=== PATIENT | female | born 1945 | race Caucasian/White ===

== ENCOUNTER 2020-07-16 23:12 | Inpatient (IN) | payer MEDICARE ==
[~2020-07-16] VITALS: Ht 165.1 cm; Wt 63.6 kg
[2020-07-16] MEDS ORDERED: ondansetron/PF 4mg/2ml inj IV ONE (23:50)
[2020-07-17 00:28] LABS: HEMOGLOBIN 12.5 g/dl (12.0-16.0); MEAN CORPUSCULAR HEMOGLOBIN 30.2 PG (27.0-31.0); MEAN PLATELET VOLUME 6.8 FL (7.4-10.4)
[2020-07-17 00:28] LABS: CLARITY,URINE CLEAR (Clear); COLOR,URINE YELLOW (Yellow); GLUCOSE, URINE NEGATIVE (Neg); KETONES,URINE NEGATIVE (Neg); LEUKOCYTE ESTERASE ,URINE MODERATE (Neg); NITRITES, URINE NEGATIVE (Neg); OCCULT BLOOD,URINE NEGATIVE (Neg); PROTEIN,URINE NEGATIVE (Neg); UROBILINOGEN,URINE 0.2 E.U/dL (0.2-1.0)
[2020-07-17 00:29] LABS: BASOPHILS % (AUTO) 0.6 % (0-1); EOSINOPHILS # (AUTO) 0.1 X10'3 (0-0.9); EOSINOPHILS % (AUTO) 1.1 % (0-6); HEMATOCRIT 36.1 % (35.0-45.0); LYMPHOCYTES # (AUTO) 1.1 X10'3 (1.1-4.8); LYMPHOCYTES % (AUTO) 15.5 % (21-51); MEAN CORPUSCULAR HGB CONC 34.5 g/dL (33.0-36.5); MEAN CORPUSCULAR VOLUME 87.6 FL (78-98); MONOCYTES # (AUTO) 0.5 X10'3 (0-0.9); MONOCYTES % (AUTO) 7.6 % (2-12); NEUTROPHILS # (AUTO) 5.2 X10'3 (1.8-7.7); NEUTROPHILS % (AUTO) 75.2 % (42-75); PLATELET COUNT 412 X10'3 (140-440); RED BLOOD COUNT 4.12 X10'6 (4.20-5.60); RED CELL DISTRIBUTION WIDTH 14.3 % (11.5-14.5); WHITE BLOOD COUNT 6.9 X10'3 (4.5-11.0)
[2020-07-17 00:32] LABS: UA COLLECTION TYPE CLN CATCH MIDSTREAM
[2020-07-17 00:34] LABS: HYALINE CASTS 0-3 /LPF (NEGATIVE); SQUAMOUS EPITHELIAL CELL,UR MODERATE /LPF (FEW)
[2020-07-17 00:35] LABS: RBC,URINE NONE SEEN /HPF (0-2)
[2020-07-17 00:36] LABS: BACTERIA,URINE 1+ /HPF (Neg); MUCUS STRANDS MODERATE /LPF (Neg); TRANSITIONAL EPI CELLS,URINE FEW /HPF
[2020-07-17 00:41] LABS: ALANINE AMINOTRANSFERASE 17 U/L (12-78); ALBUMIN/GLOBULIN RATIO 1.1 (1.1-1.5); ALKALINE PHOSPHATASE 134 IU/L (46-116); ANION GAP 14 (8-16); ASPARTATE AMINO TRANSFERASE 21 U/L (10-37); BILIRUBIN,TOTAL 0.7 MG/DL (0.1-1.0); BLOOD UREA NITROGEN 6 MG/DL (7-18); BUN/CREATININE RATIO 6.4 (6.6-38.0); CALCIUM 9.4 MG/DL (8.5-10.1); CHLORIDE 87 MMOL/L (99-107); CREATININE 0.94 MG/DL (0.40-0.90); GLUCOSE 126 MG/DL (70-104); POTASSIUM 3.2 MMOL/L (3.5-5.1); SODIUM 124 MMOL/L (135-145); TOTAL CARBON DIOXIDE 22.7 MMOL/L (24-32); TOTAL PROTEIN 7.7 G/DL (6.4-8.2); eGFR 58 ML/MIN
[2020-07-17] MEDS ORDERED: CefTRIAXone/D5W-Rocephin 1gm 50 ML IV ONE (02:00)
[2020-07-17] MEDS ORDERED: potassium Cl 20 mEq SR tablet PO STA (02:16)
[2020-07-17 02:36] LABS: TROPONIN I < 0.04 NG/ML (0.0-0.05)
[2020-07-17] MEDS ORDERED: LEVO75TA7 PO (03:01)
[2020-07-17] MEDS ORDERED: ATOR20TA66 PO (03:01)
[2020-07-17] MEDS ORDERED: LEVO50TA8 PO (03:01)
[2020-07-17] MEDS ORDERED: HYDR12.55 PO (03:01)
[2020-07-17] MEDS ORDERED: OMEP-50 PO (03:01)
[2020-07-17] MEDS ORDERED: ZOLP10TA PO (03:01)
[2020-07-17] MEDS ORDERED: LOSA50TA64 PO (03:01)
[2020-07-17] MEDS ORDERED: [UNRECOGNIZED DRUG - CODE] PO (03:01)
[2020-07-17] MEDS ORDERED: mag hydrox/Alum hydrox/simeth 30ml oral suspension PO PRN (03:45)
[2020-07-17] MEDS ORDERED: acetaminophen 325mg tablet PO PRN (03:45)
[2020-07-17] MEDS ORDERED: ondansetron/PF 4mg/2ml inj IV PRN (03:45)
[2020-07-17] MEDS ORDERED: magnesium hydroxide 30ml (MOM) UD suspension PO PRN (03:45)
[2020-07-17] MEDS ORDERED: zolpidem 5mg tablet PO PRN (04:25)
--- NOTE | 2020-07-17 04:25 | NUR ---
PT ARRIVED FROM ER. AMBULATED TO BED FROM . PT HAS BEEN ORIENTED TO THE ROOM. RECEIVED REPORT FROM YONG HA PRIOR TO PT'S ARRIVAL.
[2020-07-17 04:55] VITALS: BP 167/90
[2020-07-17] MEDS: normal saline 1000ml 1,000 ML IV SCH ×2 (05:07→20:19)
[2020-07-17 06:00] VITALS: BP 167/90
--- NOTE | 2020-07-17 06:13 | NUR ---
Problems reprioritized. Patient report given, questions answered & plan of care reviewed with YONG ZELAYA.
--- NOTE | 2020-07-17 07:20 | NUR ---
PAGER ID: [phone] MESSAGE: [id number] Rossy Young Can I get a stronger antiemetic? Mark isn't working. Mi [phone]
[2020-07-17] MEDS: levoTHYROXINE 25mcg tablet PO SCH (08:53)
[2020-07-17] MEDS: pantoprazole 40mg Tablet.DR PO SCH (08:53)
[2020-07-17] MEDS: atorvastatin 20mg tablet PO SCH (08:53)
[2020-07-17] MEDS: losartan 50mg tablet PO SCH (08:54)
[2020-07-17] MEDS: heparin, porcine 5000 units/ml vial SQ SCH ×2 (08:55→20:19)
[2020-07-17] MEDS ORDERED: metoclopramide 5 mg/ml inj IV ONE (09:20)
[2020-07-17] MEDS ORDERED: metoclopramide 5 mg/ml inj IV PRN (09:20)
[2020-07-17] MEDS ORDERED: potassium CL 10mEq/100ml bag 100 ML IV PRN (09:35)
[2020-07-17] MEDS ORDERED: magnesium Cl slow-release 64mg tablet PO PRN (09:35)
[2020-07-17] MEDS ORDERED: potassium Cl 20 mEq SR tablet PO PRN (09:35)
[2020-07-17] MEDS ORDERED: magnesium 4gm in 100ml NS 100 ML IV PRN (09:35)
[2020-07-17 10:00] VITALS: BP 142/65
[2020-07-17 10:14] LABS: BASOPHILS % (AUTO) 0.5 % (0-1); EOSINOPHILS % (AUTO) 0.1 % (0-6); HEMATOCRIT 34.8 % (35.0-45.0); LYMPHOCYTES # (AUTO) 0.7 X10'3 (1.1-4.8); MEAN CORPUSCULAR HEMOGLOBIN 29.8 PG (27.0-31.0); MEAN CORPUSCULAR HGB CONC 34.5 g/dL (33.0-36.5); MEAN CORPUSCULAR VOLUME 86.2 FL (78-98); MEAN PLATELET VOLUME 6.9 FL (7.4-10.4); MONOCYTES # (AUTO) 0.3 X10'3 (0-0.9); MONOCYTES % (AUTO) 4.2 % (2-12); NEUTROPHILS % (AUTO) 85.2 % (42-75); PLATELET COUNT 420 X10'3 (140-440); RED BLOOD COUNT 4.03 X10'6 (4.20-5.60); RED CELL DISTRIBUTION WIDTH 14.2 % (11.5-14.5)
[2020-07-17 10:36] LABS: ALBUMIN 3.6 G/DL (3.4-5.0); ANION GAP 12 (8-16); BLOOD UREA NITROGEN 5 MG/DL (7-18); CHLORIDE 90 MMOL/L (99-107); CREATININE 0.84 MG/DL (0.40-0.90); GLUCOSE 116 MG/DL (70-104); LIPASE 61 U/L (73-393); PHOSPHORUS 2.8 MG/DL (2.3-4.5); POTASSIUM 3.6 MMOL/L (3.5-5.1); SODIUM 125 MMOL/L (135-145); TOTAL CARBON DIOXIDE 23.2 MMOL/L (24-32); eGFR 66 ML/MIN
[2020-07-17] MEDS: CefTRIAXone/D5W-Rocephin 1gm 50 ML IV SCH (11:51)
--- NOTE | 2020-07-17 18:08 | NUR ---
Patient in room ORTHO 4009. I have received report from Danni and had the opportunity to ask questions and assume patient care.
[2020-07-17 18:10] VITALS: BP 139/54
--- NOTE | 2020-07-17 18:12 | NUR ---
Student documentation: I have reviewed and agree with all interventions, assessments performed and documented by JAMIE MONCADA. Student Medication Administration: For this medication-pass time frame, all medication were reviewed, dispensed, administered and documented per hospital policy by JAMIE BEACH.
--- NOTE | 2020-07-17 18:15 | NUR ---
Problems reprioritized. Patient report given, questions answered & plan of care reviewed with YONG BROWNE.
[2020-07-17] MEDS: K and/or MAG REPLACEMENT MC SCH (20:00)
[2020-07-17] MEDS: lactobacillus rhamnosus 10,000 MMU CELLS/CAPSULE PO SCH (20:19)
[2020-07-17 22:00] VITALS: BP 150/57
[2020-07-18] MEDS: normal saline 1000ml 1,000 ML IV SCH ×2 (05:37→19:04)
--- NOTE | 2020-07-18 06:01 | NUR ---
REPORT GIVEN TO RAUL BEACH
[2020-07-18 06:10] VITALS: BP 124/76
[2020-07-18 06:31] LABS: EOSINOPHILS # (AUTO) 0.1 X10'3 (0-0.9); EOSINOPHILS % (AUTO) 2.9 % (0-6); HEMATOCRIT 29.6 % (35.0-45.0); HEMOGLOBIN 10.1 g/dl (12.0-16.0); LYMPHOCYTES # (AUTO) 1.7 X10'3 (1.1-4.8); LYMPHOCYTES % (AUTO) 37.8 % (21-51); MEAN CORPUSCULAR HEMOGLOBIN 29.6 PG (27.0-31.0); MEAN CORPUSCULAR HGB CONC 34.1 g/dL (33.0-36.5); MEAN CORPUSCULAR VOLUME 86.7 FL (78-98); MEAN PLATELET VOLUME 7.2 FL (7.4-10.4); MONOCYTES # (AUTO) 0.6 X10'3 (0-0.9); MONOCYTES % (AUTO) 13.6 % (2-12); NEUTROPHILS # (AUTO) 2.1 X10'3 (1.8-7.7); NEUTROPHILS % (AUTO) 44.7 % (42-75); PLATELET COUNT 352 X10'3 (140-440); RED BLOOD COUNT 3.41 X10'6 (4.20-5.60); RED CELL DISTRIBUTION WIDTH 14.5 % (11.5-14.5); WHITE BLOOD COUNT 4.6 X10'3 (4.5-11.0)
[2020-07-18 06:40] LABS: ALANINE AMINOTRANSFERASE 14 U/L (12-78); ALBUMIN 2.9 G/DL (3.4-5.0); ALKALINE PHOSPHATASE 103 IU/L (46-116); ANION GAP 4 (8-16); ASPARTATE AMINO TRANSFERASE 15 U/L (10-37); BILIRUBIN,TOTAL 0.5 MG/DL (0.1-1.0); BLOOD UREA NITROGEN 4 MG/DL (7-18); BUN/CREATININE RATIO 4.7 (6.6-38.0); CALCIUM 8.6 MG/DL (8.5-10.1); CHLORIDE 102 MMOL/L (99-107); CREATININE 0.86 MG/DL (0.40-0.90); GLUCOSE 84 MG/DL (70-104); MAGNESIUM 1.6 MG/DL (1.5-2.4); PHOSPHORUS 2.8 MG/DL (2.3-4.5); POTASSIUM 3.3 MMOL/L (3.5-5.1); SODIUM 131 MMOL/L (135-145); TOTAL CARBON DIOXIDE 25.2 MMOL/L (24-32); TOTAL PROTEIN 5.7 G/DL (6.4-8.2); eGFR 64 ML/MIN
[2020-07-18] MEDS: K and/or MAG REPLACEMENT MC SCH ×2 (08:00→19:05)
[2020-07-18] MEDS: lactobacillus rhamnosus 10,000 MMU CELLS/CAPSULE PO SCH ×2 (09:03→19:04)
[2020-07-18] MEDS: atorvastatin 20mg tablet PO SCH (09:03)
[2020-07-18] MEDS: pantoprazole 40mg Tablet.DR PO SCH (09:04)
[2020-07-18] MEDS: potassium Cl 20 mEq SR tablet PO PRN ×3 (09:04→19:04)
[2020-07-18] MEDS: CefTRIAXone/D5W-Rocephin 1gm 50 ML IV SCH (09:06)
[2020-07-18] MEDS: losartan 50mg tablet PO SCH (09:06)
[2020-07-18] MEDS: heparin, porcine 5000 units/ml vial SQ SCH ×2 (09:07→19:04)
[2020-07-18 10:00] VITALS: BP 163/62
[2020-07-18 14:45] LABS: CLARITY,URINE CLEAR (Clear); COLOR,URINE YELLOW (Yellow); GLUCOSE, URINE NEGATIVE (Neg); KETONES,URINE NEGATIVE (Neg); LEUKOCYTE ESTERASE ,URINE SMALL (Neg); NITRITES, URINE NEGATIVE (Neg); OCCULT BLOOD,URINE NEGATIVE (Neg); PH,URINE 6.5 (4.8-8.0); PROTEIN,URINE NEGATIVE (Neg)
[2020-07-18 14:50] LABS: UA COLLECTION TYPE NON-SPECIFIED
[2020-07-18 15:09] LABS: BACTERIA,URINE FEW /HPF (Neg); MUCUS STRANDS FEW /LPF (Neg); SQUAMOUS EPITHELIAL CELL,UR FEW /LPF (FEW)
[2020-07-18 15:10] LABS: RBC,URINE 0-2 /HPF (0-2); TRANSITIONAL EPI CELLS,URINE FEW /HPF; WBC,URINE 0-4 /HPF (0-4)
[2020-07-18 18:00] VITALS: BP 118/51
--- NOTE | 2020-07-18 18:14 | NUR ---
Problems reprioritized. Patient report given, questions answered & plan of care reviewed with Juany BEACH.
[2020-07-18] MEDS: lactose-reduced food (Ensure High Protein) 237ml bottle PO SCH (18:21)
--- NOTE | 2020-07-18 18:25 | NUR ---
Patient in room ORTHO 4022. I have received report from Sasha BEACH and had the opportunity to ask questions and assume patient care.
--- NOTE | 2020-07-18 21:01 | NUR ---
Problems reprioritized. Patient report given, questions answered & plan of care reviewed with Ishaan BEACH.
--- NOTE | 2020-07-18 21:07 | NUR ---
Patient in room ORTHO 4022. I have received report from Juany BEACH and had the opportunity to ask questions and assume patient care.
[2020-07-18 22:00] VITALS: BP 178/70
[2020-07-19 06:00] VITALS: BP 142/64
[2020-07-19 06:05] LABS: BASOPHILS # (AUTO) 0.1 X10'3 (0-0.2); BASOPHILS % (AUTO) 0.9 % (0-1); EOSINOPHILS # (AUTO) 0.3 X10'3 (0-0.9); EOSINOPHILS % (AUTO) 4.6 % (0-6); HEMATOCRIT 29.9 % (35.0-45.0); HEMOGLOBIN 10.5 g/dl (12.0-16.0); LYMPHOCYTES # (AUTO) 2.3 X10'3 (1.1-4.8); MEAN CORPUSCULAR HEMOGLOBIN 30.9 PG (27.0-31.0); MEAN CORPUSCULAR HGB CONC 35.2 g/dL (33.0-36.5); MEAN CORPUSCULAR VOLUME 87.7 FL (78-98); MEAN PLATELET VOLUME 7.4 FL (7.4-10.4); MONOCYTES # (AUTO) 0.8 X10'3 (0-0.9); MONOCYTES % (AUTO) 12.7 % (2-12); NEUTROPHILS % (AUTO) 45.8 % (42-75); PLATELET COUNT 362 X10'3 (140-440); RED CELL DISTRIBUTION WIDTH 14.5 % (11.5-14.5); WHITE BLOOD COUNT 6.5 X10'3 (4.5-11.0)
[2020-07-19 06:13] LABS: ALANINE AMINOTRANSFERASE 16 U/L (12-78); ALBUMIN/GLOBULIN RATIO 1.1 (1.1-1.5); ALKALINE PHOSPHATASE 97 IU/L (46-116); ANION GAP 8 (8-16); ASPARTATE AMINO TRANSFERASE 18 U/L (10-37); BILIRUBIN,TOTAL 0.4 MG/DL (0.1-1.0); BLOOD UREA NITROGEN 9 MG/DL (7-18); BUN/CREATININE RATIO 10.2 (6.6-38.0); CALCIUM 9.1 MG/DL (8.5-10.1); CHLORIDE 102 MMOL/L (99-107); CREATININE 0.88 MG/DL (0.40-0.90); FERRITIN 115 NG/ML (8-252); GLUCOSE 81 MG/DL (70-104); MAGNESIUM 1.7 MG/DL (1.5-2.4); PHOSPHORUS 2.6 MG/DL (2.3-4.5); POTASSIUM 4.1 MMOL/L (3.5-5.1); SODIUM 135 MMOL/L (135-145); TOTAL CARBON DIOXIDE 24.6 MMOL/L (24-32); TOTAL PROTEIN 5.7 G/DL (6.4-8.2); eGFR 63 ML/MIN
[2020-07-19] MEDS: normal saline 1000ml 1,000 ML IV SCH (06:19)
--- NOTE | 2020-07-19 06:26 | NUR ---
Problems reprioritized. Patient report given, questions answered & plan of care reviewed with Min BEACH.
--- NOTE | 2020-07-19 06:31 | NUR ---
Patient in room ORTHO 4022. I have received report from Ishaan and had the opportunity to ask questions and assume patient care.
[2020-07-19 06:34] LABS: % IRON SATURATION 32 % (11-46); IRON 69 UG/DL (49-151); TOTAL IRON BINDING CAPACITY 217 UG/DL (259-388)
[2020-07-19] MEDS: K and/or MAG REPLACEMENT MC SCH (06:44)
[2020-07-19] MEDS ORDERED: levoTHYROXINE 75mcg tablet PO SCH (07:30)
[2020-07-19] MEDS: lactose-reduced food (Ensure High Protein) 237ml bottle PO SCH (07:49)
[2020-07-19] MEDS: atorvastatin 20mg tablet PO SCH (08:02)
[2020-07-19] MEDS: pantoprazole 40mg Tablet.DR PO SCH (08:02)
[2020-07-19] MEDS: levoTHYROXINE 25mcg tablet PO SCH (08:02)
[2020-07-19] MEDS: lactobacillus rhamnosus 10,000 MMU CELLS/CAPSULE PO SCH (08:03)
[2020-07-19] MEDS: losartan 50mg tablet PO SCH (08:03)
[2020-07-19] MEDS: CefTRIAXone/D5W-Rocephin 1gm 50 ML IV SCH (08:04)
[2020-07-19] MEDS: heparin, porcine 5000 units/ml vial SQ SCH (08:06)
[2020-07-19 10:00] VITALS: BP 123/63
[2020-07-19] MEDS ORDERED: CEFD300C3 PO (10:09)
[2020-07-19] MEDS ORDERED: AMLO5TAB16 PO (10:09)
[2020-07-19] MEDS ORDERED: LACT1CAP26 PO (10:09)
--- NOTE | 2020-07-19 12:30 | NUR ---
Safe DC. All personal items with patient. Left hospital with daughter in personal vehicle. Educated patient on new medications and follow-up with her primary care provider.
== END 2020-07-19 12:30 | disposition home or self-care (01) | DRG 690 ==
LOC: ER 23:12 → ED HOLD 07-17 03:45 → ORTHO 4S 07-17 04:22
PROVIDERS: ADMIT Internal Medicine; ATTEND Family Medicine
DX: N39.0 Urinary tract infection, site not specified (principal); E87.1 Hypo-osmolality and hyponatremia; E86.0 Dehydration; I10 Essential (primary) hypertension; D64.9 Anemia, unspecified; E03.9 Hypothyroidism, unspecified; E78.00 Pure hypercholesterolemia, unspecified; E78.5 Hyperlipidemia, unspecified; E86.1 Hypovolemia; J44.9 Chronic obstructive pulmonary disease, unspecified; K21.9 Gastro-esophageal reflux disease without esophagitis; Z87.442 Personal history of urinary calculi; Z90.710 Acquired absence of both cervix and uterus
CPT/HCPCS: 36415; 71045; 74018; 80048; 80053; 81001; 82728; 83540; 83550; 83690; 83735; 84100; 84443; 84484; 85025; 87077; 87081; 87088; 87186; 93005; 96365; 96375; 97161; 97530; 99285; G0378; J0696; J1644; J2405; J2765; J7030

== ENCOUNTER 2025-02-05 18:12 | Emergency (ER) | payer MEDICARE ==
[~2025-02-05] VITALS: Ht 165.1 cm; Wt 64.7 kg
[~2025-02-05 18:12] MED LIST: AMLO5TAB16 PO; ATOR20TA66 PO; LACT1CAP26 PO; LEVO50TA8 PO; LEVO75TA7 PO; LOSA50TA64 PO; OMEP20CA16 PO; ZOLP-679 PO; [UNRECOGNIZED DRUG - CODE] PO
[2025-02-05 18:18] VITALS: BP 189/90; PULSE 101; TEMP 97.6; O2SAT 96
--- NOTE | 2025-02-05 18:25 | Physician Documentation ---
History of Present Illness ~ Chief Complaint: Cold, cough & congestion Stated Complaint: "I HAVE A HEAD COLD THAT WENT INTO MY CHEST" Time Seen by MD: 18:39 OK to notify your PCP?: Yes Primary Medical Doctor: Gilliam Source: patient Mode of Arrival: POV Exam Limitations: no limitations HPI Sangita is a 79-year-old female who has been having a cough and congestion for the past 3 days. She has recently been moving it and around a lot of dust and thinks she may have gotten some dust particles into her lungs. She has no shortness of breath or chest pain. She has not taken any medications for her symptoms prior to arrival. Medication Reconciliation Allergies: Coded Allergies: Sulfa (Sulfonamide Antibiotics) (Verified Allergy, Unknown, 02/05/25) codeine (Verified Adverse Reaction, Unknown, 02/05/25) Scheduled Amlodipine Besylate (Amlodipine Besylate), 1 TAB PO DAILY Atorvastatin Calcium (Atorvastatin Calcium), 20 MG PO DAILY, (Reported) Lactobacillus Rhamnosus (Culturelle), 10,000 MMU PO Q12H Levothyroxine Sodium (Levothyroxine Sodium), 50 MCG PO MWF, (Reported) Levothyroxine Sodium (Levothyroxine Sodium), 75 MCG PO TUF, (Reported) Losartan Potassium (Losartan Potassium), 50 MG PO DAILY, (Reported) Omeprazole (Omeprazole), 20 MG PO DAILY, (Reported) Potassium Chloride (potassium chloride), 8 MEQ PO DAILY, (Reported) Zolpidem Tartrate (Ambien), 10 MG PO HS, (Reported) Past Medical History Past Medical History: High Cholesterol, Hypertension, Asthma, COPD, Kidney Stones, Renal Disease, Hypothyroidism Past Surgical History: hysterectomy, tonsillectomy Alcohol Use: Occasionally Drug Use: none Lives with: Family Lives In: Home Occupation: retired Review of Systems All Other Systems at this time: Reviewed and Negative Physical Exam Vital Signs: RN Vital Signs have been reviewed: Yes, Temperature: 97.6, Source: Temporal, Heart Rate: 101, Respiratory Rate: 18, BP: 189/90, Pulse Oximetry: 96, Weight: 64.690 Pulse Oximetry Reflects: adequate oxygenation Physical Exam General: Alert, no apparent distress. HEENT: PERRL, EOMI, no injection, moist mucous membranes. Bilateral TM clear. Sinuses nontender to palpation. Erythema to posterior pharynx, no exudates or cobblestoning. Neck: Full range of motion. Respiratory: Lungs clear, no respiratory distress. No wheezes, rhonchi or crackles. Chest: No accessory muscle use. Cardiovascular: Regular rate and rhythm, no murmurs. Extremities: Normal range of motion, no deformity. Neurologic: Oriented x4. Psychiatric: Normal mood and affect. Skin: Normal color, warm and dry. No edema, no ecchymosis. Progress Results/Orders Reviewed/noted all lab results: Yes Results/Orders Vital Signs 02/05/25 18:18 Temp 97.6 Pulse 101 Resp 18 B/P (MAP) 189/90 Pulse Ox 96 EKG/XRAY/CT/US/VASC/MRI Chest X-Ray : Additional Comments Chest x-ray: as interpreted by me; no large effusion, no large infiltrate, normal mediastinum. Medical Decision Making Findings Rossy is a 79-year-old female presenting with a cough after moving and being exposed to excess amounts of dust. She describes feeling fullness in her s inuses although they were nontender to palpation. She denies any shortness of breath and her lungs were clear to auscultation. Chest x-ray was normal and shows no signs of pneumonia. We discussed her continue using her Tessalon Perles which she has been her purse to help with her cough. We discussed that this cough is likely due to the inflammation from the desk but could also be due to a viral infection. We also discussed using Flonase [id number] to help decrease inflammation in her sinuses but I do not suspect any infection. We discussed that she does not need any antibiotics at this time. We discussed that she should avoid dust and when she use move and gayla papers, she should be wearing a mask or respirator to help filter out the dust particles. Follow up with her primary care provider in the next 3 days and return back here for any new or worsening symptoms. Differential Dx:Considerations: Include: Allergic rhinitis, Pharyngitis-Viral, Pneumonia, Sinusitis Departure Disposition: 01 HOME / SELF CARE / HOMELESS Impression: Primary Impression: Cough Condition: Stable Discharge Instructions: Cough, Adult Additional Instructions: We discussed her continue using her Tessalon Perles which she has been her purse to help with her cough. We also discussed using Flonase 1 spray each nostril at bedtime [id number] to help decrease inflammation in her sinuses but I do not suspect any infection. We discussed that she does not need any antibiotics at this time. This cough is likely due to dust exposure but could also be the start of a viral infection. We discussed that she should avoid dust and when she use move and gayla papers, she should be wearing a mask or respirator to help filter out the dust particles. Follow up with her primary care provider in the next 3 days and return back here for any new or worsening symptoms. Referrals: NO PRIMARY CARE PROVIDER (PCP) Education Educated: Patient Educated regarding: diagnosis, treatment, prognosis, need for follow up Additional Comment Medical Screen Exam This patient recieved a medical screening examination. After reviewing the individual's medical complaints with presenting symptoms and performing an appropriate physical examination, it was determined that no emergency medical condition is present. This individual is also not a women having contractions. Signature Scribe Signature: . Attestation: Scribed for Teena Holly [facility] by Teena Dior NP . 02/05/25 19:15 TEENA HOLLY February 05, 2025 18:25
--- NOTE | 2025-02-05 18:51 | RADIOLOGY REPORT ---
CHEST RADIOGRAPH Indication: CP Technique: Single frontal view of the chest was obtained Comparison: None FINDINGS: Lines and Tubes: None Lungs: No focal consolidation. Pleura: No effusion. No pneumothorax. Cardiomediastinal contours: Unremarkable Bones: No acute osseous abnormality. IMPRESSION: 1. No acute cardiopulmonary disease.
[2025-02-05 19:02] VITALS: RESP 18
== END 2025-02-05 19:22 | disposition home or self-care (01) ==
LOC: ER 18:13
DX: R05.9 Cough, unspecified (principal); R09.81 Nasal congestion; E03.9 Hypothyroidism, unspecified; E78.00 Pure hypercholesterolemia, unspecified; I10 Essential (primary) hypertension; J44.9 Chronic obstructive pulmonary disease, unspecified; Z88.2 Allergy status to sulfonamides; Z88.5 Allergy status to narcotic agent; Z88.8 Allergy status to other drugs, medicaments and biological substances; Z90.710 Acquired absence of both cervix and uterus; Z98.890 Other specified postprocedural states
CPT/HCPCS: 71045; 99283